=== PATIENT | male | born 1945 | race Caucasian/White ===

== ENCOUNTER → 2016-11-29 | Outpatient (CLI) | payer BC, MEDICARE ==
[~2016-11-29] MED LIST: ASPIRIN81 MG PO; BAYER ASPIRIN325 M1 PO; COREG3.125 MG PO; DOCUSATE SODIU100 MG PO; ELIQUIS5 MG PO; FENOFIBRATE67 MG PO; GLUCOPHAGE500 M1 PO; GLUCOPHAGE500 MG PO; HYDROCODON-ACE1 EAC5 PO; IBUPROFEN800 MG PO; LIPITOR PO; LISINOPRIL PO; LOPID600 MG PO; METFORMIN PO; NEXIUM PO; PLAVIX PO; PRAVACHOL20 MG PO; PROSCAR5 MG PO; VITAMIN D1000 UNIT PO; XANAX0.5 M1 PO; XANAX0.5 MG PO; ZESTORETIC 10-1 EACH PO
--- NOTE | ~2016-11-29 | US85 ---
[facility] A Service of [facility] RADIOLOGY TEXT RESULTS PATIENT: MARK ZARATE LOCATION: CNIV : 44 UNIT #: [id number] AGE: [address]: REAL MOREL MD SEX: M ORDER DR: [id number] [facility] [address] [place], [place] [address] [id number] O MR#: [id number] Acc #: [id number] NAME: MARK ZARATE : 1945 SEX: M STUDY DATE/TIME: 11/29/2016 16:07 UNIT: CNIV ROOM: STUDY DESCRIPTION: [facility] Attending Physician: Real Morel M.D. Referring Physician: Real Morel M.D. Ordering Physician: Real Morel M.D. Primary Care Physician: Real Morel M.D. MEDICAL IMAGING REPORT This report is preliminary unless electronic signature is present EXAM Right lower extremity venous duplex. HISTORY Right lower extremity edema for 2 months. FINDINGS Venous duplex imaging in the right lower extremity reveals patent femoral, popliteal, tibial, and peroneal veins with normal venous filling in all the visualized veins. No evidence of DVT is seen. IMPRESSION No evidence of DVT is seen in the right lower extremity. Dictated by... Trevor Medina M.D. THIS IS AN ELECTRONICALLY VERIFIED REPORT Trevor Medina M.D. at 12/02/2016 4:39 PM Vanessa TD: 11/30/2016 03:51 JOB #: [id number] MEDICAL IMAGING REPORT Page 1 of 1 COPY
== END | disposition home or self-care (01) ==
LOC: CNIV 15:44
DX: R60.0 Localized edema (principal)
CPT/HCPCS: 93971

== ENCOUNTER → 2016-12-24 | Outpatient (CLI) | payer BC, MEDICARE ==
--- NOTE | ~2016-12-24 | CT14 ---
[facility] A Service of [facility] RADIOLOGY TEXT RESULTS PATIENT: MARK ZARATE LOCATION: CNIV : 44 UNIT #: [id number] AGE: [address]: Briseida Chavira MD SEX: M ORDER DR: [id number] [facility] [address] [place], [place] [address] [id number] O MR#: [id number] Acc #: [id number] NAME: MARK ZARATE : 1945 SEX: M STUDY DATE/TIME: 12/24/2016 15:26 UNIT: CNIV ROOM: STUDY DESCRIPTION: CT Angio Abdomen and Pelvis Attending Physician: Briseida Chavira M.D. Referring Physician: Briseida Chavira M.D. Ordering Physician: Briseida Chavira M.D. Primary Care Physician: Real Kellogg M.D. MEDICAL IMAGING REPORT This report is preliminary unless electronic signature is present EXAM CT angiogram abdomen and pelvis INDICATION Follow up aortic aneurysm. Prior endovascular aortic repair, routine surveillance. TECHNIQUE CT angiogram of the abdomen and pelvis was performed before and after the administration of IV contrast using a multiphase stent graft protocol. Coronal, sagittal and 3D reformatted images were obtained. This CT exam was performed with one or more of the following radiation dose reduction techniques: Automatic exposure control, adjustment of mA and/or kV according to patient size, and iterative reconstruction. COMPARISON Comparison is made with 03/23/2016. FINDINGS CT ANGIOGRAM: There has been a prior EVAR. The stent graft is widely patent. The aneurysm sac size measures about 5.5 x 4.8 cm which is decreased. There is no evidence for endoleak. The visceral arteries are stable. CT OF THE ABDOMEN: Calcified granuloma in the right lower lobe. Tiny cyst in the liver. Gallbladder unremarkable. Spleen unremarkable. Stable areas of cortical thinning in the kidneys. The adrenal glands are unremarkable. The pancreas is unremarkable. PELVIS: Prostatomegaly. The appendix is normal. Scattered diverticula within the colon. Bone windows demonstrate postoperative changes of the right hip and degenerative changes of the left hip as well as degenerative changes of the lumbar spine. [facility]. [facility] A Service of [facility] RADIOLOGY TEXT RESULTS PATIENT: MARK ZARATE LOCATION: CNIV : 44 UNIT #: [id number] AGE: [address]: Briseida Chavira MD SEX: M ORDER DR: IMPRESSION Patent stent graft without evidence of endoleak. Decrease in size of the aneurysm sac. Dictated by... Ubaldo Zavala M.D. THIS IS AN ELECTRONICALLY VERIFIED REPORT Ubaldo Zavala M.D. at 12/26/2016 5:10 PM BUSHRA/anuradha TD: 12/25/2016 12:08 JOB #: [id number] MEDICAL IMAGING REPORT Page 1 of 1 COPY
--- NOTE | ~2016-12-24 | US37 ---
[facility] A Service of [facility] & [facility] RADIOLOGY TEXT RESULTS PATIENT: MARK ZARATE LOCATION: CNIV : 44 UNIT #: [id number] AGE: [address]: Briseida Chavira MD SEX: M ORDER DR: [id number] [facility] [address] [place], [place] [address] [id number] O MR#: [id number] Acc #: [id number] NAME: MARK ZARATE : 1945 SEX: M STUDY DATE/TIME: 12/24/2016 15:43 UNIT: CNIV ROOM: STUDY DESCRIPTION: US Carotid W/Doppler Bilateral Attending Physician: Briseida Chavira M.D. Referring Physician: Briseida Chavira M.D. Ordering Physician: Briseida Chavira M.D. Primary Care Physician: Real Kellogg M.D. MEDICAL IMAGING REPORT This report is preliminary unless electronic signature is present EXAM Bilateral carotid Doppler. REASON FOR EXAM Carotid stenosis, history of left carotid endarterectomy. FINDINGS The right common carotid, internal carotid and external carotids are patent with mild diffuse plaque throughout. Velocity of the common carotid artery is 75 cm/sec. Peak systolic velocity of the right proximal internal carotid is 54 cm/sec with an end-diastolic velocity of 7 cm/sec for an IC/CC ratio of 0.72. External carotid artery velocity of 95 cm/sec. The vertebral artery is visualized with antegrade flow. The left common internal and external carotid arteries are widely patent without plaque or intimal thickening. Velocity of the common carotid artery is 54 cm/sec. Peak systolic velocity of the left proximal internal carotid artery is 49 cm/sec with an end-diastolic velocity of 16 cm/sec for an IC/CC ratio of 0,9. External carotid artery velocity of 88 cm/sec. The vertebral artery is visualized with antegrade flow. IMPRESSION 1. Less than 50% stenosis of the right internal carotid artery and normal appearance of the left internal carotid artery. 2. No stenosis of the external carotid arteries. 3. Antegrade flow of the vertebral arteries. Dictated by... Briseida Chavira M.D. [facility]. [facility] A Service of [facility] RADIOLOGY TEXT RESULTS PATIENT: MARK ZARATE LOCATION: CNIV : 44 UNIT #: [id number] AGE: [address]: Briseida Chavira MD SEX: M ORDER DR: THIS IS AN ELECTRONICALLY VERIFIED REPORT Briseida Chavira M.D. at 12/25/2016 10:34 AM VINCEN/viet TD: 12/25/2016 06:24 JOB #: [id number] MEDICAL IMAGING REPORT Page 1 of 1 COPY
[2016-12-24 16:56] LABS: POC - CREATININE 1.27 mg/dL (0.64-1.27)
== END | disposition home or self-care (01) ==
LOC: CNIV 14:20
PROVIDERS: Surgery Vascular Surgery
DX: I65.23 Occlusion and stenosis of bilateral carotid arteries (principal); I71.4 Abdominal aortic aneurysm, without rupture; I10 Essential (primary) hypertension; E78.5 Hyperlipidemia, unspecified; R60.0 Localized edema; I65.21 Occlusion and stenosis of right carotid artery; Z95.828 Presence of other vascular implants and grafts
CPT/HCPCS: 74174; 82565; 93880; Q9967